=== PATIENT | male | born 1940 | race Caucasian/White ===

== ENCOUNTER 2017-09-01 14:02 | Emergency (ER) | payer MEDICARE, OTHER ==
[~2017-09-01] VITALS: Ht 165.1 cm; Wt 76.2 kg
[~2017-09-01 14:02] MED LIST: ACET500; ALBU.083IS IH; ALBU3IS INH; ALUMAG30SU PO; ATOR40TA PO; BUPR100ER; BUPR150T2 PO; CALCAVITDA PO; CEPH500 PO; CHOL10002 PO; CIPR500 PO; CLIN1TS TOP; CLON.1 PO; CLOP75 PO; CYAN1000 PO; CYAN500 PO; Carisoprodol350 MG PO; Cipro500 MG PO; Co Q-10100 MG PO; Coq-1030 MG PO; DIPH12.5EL; DIPH50 PO; DOXA4; DOXA4 PO; DULO30 PO; Daily Multiple1 EACH PO; ERYSTE250 PO; ERYT250 PO; ESOM20 PO; ESZO1 PO; ESZO2 PO; FAMO20 PO; FINA5 PO; FISH1000 PO; FLUT.05NI; Flagyl500 MG PO; Flonase 0.05% N16 GM; Fruity C250 MG PO; GAVILAX17 GM PO; GLUCHON PO; HYDACE5 PO; HYDR10; HYDR10 PO; HYDR1TAB94; HYOS.125 SL; IMIQUIMOD1 EACH; INDAPAMIDE PO; ISOMON20; LEVFLO500 PO; LORA.5 PO; LORA1 PO; LORA10 PO; LORTAB PO; LOZOL PO; Lipoic Acid1 GM PO; MAGNESIUM CITR100 MG PO; MAGNESIUM CITRATE PO; MAGOXI400 PO; MELA3; MELA3 PO; META800; METCAR750 PO; METR500 PO; MULVITMIND PO; Melatonin1 MG PO; Nitrostat0.4 MG SL; Non-Aspirin Ex500 M1 PO; Norco 5-325 Ta1 EACH PO; OXYC5 PO; PAIN RELIEVER500 MG PO; PANT40 PO; PARO10 PO; POTCHL10ER; POTCHL10ER PO; POTCIT10 PO; PRED20 PO; R LIPOIC ACID PO; RXALBOI INH; RXCLIN PO; SENN187 PO; SOMA250 MG PO; SUCR1 PO; SUCR1SU PO; Senna-Docusate1 EACH PO; TRAM50 PO; UBID10; VERA240ER PO; VERA240ERB; VICODIN 5-3001 EACH PO; VITS/SUPPS; ZINC30 MG PO; ZOLP10; ZOLP10 PO; ZOLP5 PO; [UNRECOGNIZED DRUG - OTHER] PO
[2017-09-01] MEDS ORDERED: Prednisone20 MG PO (15:10)
== END 2017-09-01 15:16 | disposition home or self-care (01) ==
LOC: ER 14:02
DX: R20.2 Paresthesia of skin (principal); T78.1XXA Other adverse food reactions, not elsewhere classified, initial encounter; Z79.899 Other long term (current) drug therapy; Z88.6 Allergy status to analgesic agent; Z88.2 Allergy status to sulfonamides; Z88.8 Allergy status to other drugs, medicaments and biological substances; Z79.2 Long term (current) use of antibiotics; Z87.442 Personal history of urinary calculi; I25.810 Atherosclerosis of coronary artery bypass graft(s) without angina pectoris; Z90.49 Acquired absence of other specified parts of digestive tract; Z87.891 Personal history of nicotine dependence
CPT/HCPCS: 96374; 96375; 99283; J1200; J2930; J3490

== ENCOUNTER 2018-10-03 00:59 | Observation (INO) | payer MEDICARE, OTHER ==
[~2018-10-03] VITALS: Ht 165.1 cm; Wt 74.2 kg
[~2018-10-03 00:59] MED LIST changes: +Omega 3 Fish O1 EACH PO; +Prednisone20 MG PO; +VITAMIN B-121000 MCG PO
[2018-10-03 01:40] LABS: PCO2 Arterial 30.9 mmHg (35-45); PO2 Arterial 85.3 mmHg (80-100); pH Blood Arterial 7.48 (7.35-7.45)
[2018-10-03 01:53] LABS: BASOPHILS ABSOLUTE AUTO 0.05 K/mm3 (0.00-0.23); BASOPHILS PERCENT AUTO 1 % (0-2); EOSINOPHILS ABSOLUTE AUTO 0.15 K/mm3 (0.00-0.68); EOSINOPHILS PERCENT AUTO 2 % (0-6); Hematocrit 38.5 % (37.0-53.0); Hemoglobin 12.6 g/dL (13.5-17.5); IMMATURE GRAN ABSOLUTE AUTO 0.02 K/mm3 (0.00-0.10); IMMATURE GRAN PERCENT AUTO 0 % (0-1); LYMPHOCYTES ABSOLUTE AUTO 2.28 K/mm3 (0.84-5.20); LYMPHOCYTES PERCENT AUTO 29 % (21-46); MONOCYTES ABSOLUTE AUTO 0.59 K/mm3 (0.16-1.47); MONOCYTES PERCENT AUTO 8 % (4-13); Mean Corpuscular HGB 29.4 pg (26.0-34.0); Mean Corpuscular HGB Conc 32.7 g/dL (31.5-36.5); Mean Corpuscular Volume 90 fL (80-100); NEUTROPHILS ABSOLUTE AUTO 4.82 K/mm3 (1.96-9.15); NEUTROPHILS PERCENT AUTO 61 % (41-73); Platelet Count 240 K/mm3 (150-400); RDW Coefficient Variation 12.2 % (11.7-14.2); RDW Standard Deviation 40.3 fL (35.1-46.3); Red Blood Cell Count 4.28 M/mm3 (4.30-5.90); White Blood Cell Count 7.91 K/mm3 (4.00-11.30)
[2018-10-03 02:17] LABS: Anion Gap 7 mmol/L (6-16); Blood Urea Nitrogen 22 mg/dL (8-24); CO2, Blood 25 mmol/L (21-32); Chloride, Blood 108 mmol/L (98-108); Glucose, Blood 110 mg/dL (70-99); Potassium, Blood 4.1 mmol/L (3.5-5.5); Sodium, Blood 140 mmol/L (136-145)
[2018-10-03 02:18] LABS: Alanine Aminotransfer (ALT/SGP 26 U/L (12-78); Albumin, Blood 3.7 g/dL (3.4-5.0); Albumin/Globulin Ratio 1.2 (0.8-1.8); Alk Phos 72 U/L (50-136); Aspartate Aminotrans (AST/SGOT 32 U/L (12-37); Bilirubin, Total 0.3 mg/dL (0.1-1.0); Bun/Creatinine Ratio 17.9 (12.0-20.0); Calcium, Blood 8.4 mg/dL (8.5-10.1); Creatinine, Blood 1.23 mg/dL (0.60-1.20); Globulin, Blood 3.2 g/dL (2.2-4.0); Glomerular Filtration Rate 57 (60-); Total Protein, Blood 6.9 g/dL (6.4-8.2); Troponin I <0.015 ng/mL (0.000-0.040)
--- NOTE | 2018-10-03 14:15 | NUR ---
PT ADMITTED TO ROOM 332 FROM ED. STATES HE HAD BEEN ASKING FOR TYLENOL FOR HEADACHE FOR SEVERAL HOURS AND HE HASN'T GOTTEN HIS BLOOD PRESSURE MEDS ALL DAY. SETTLED IN TO BED AND ORIENTED TO ROOM,
[2018-10-03] MEDS ORDERED: OLIVE LEAF EXT250 MG PO (16:33)
[2018-10-03] MEDS ORDERED: MAGNESIUM100 MG PO (16:34)
[2018-10-03] MEDS ORDERED: CLIN1TS TOP (16:35)
[2018-10-03] MEDS ORDERED: MAGNESIUM CITR100 MG PO (16:37)
[2018-10-03] MEDS ORDERED: CLARITIN10 MG PO (17:14)
[2018-10-03] MEDS ORDERED: BENADRYL25 MG PO (17:15)
--- NOTE | 2018-10-03 18:22 | NUR ---
SHIFT SUMMARY PT INDEPENDENT IN ROOM. TYLENOL AND HYDRALAZINE GIVEN. DR. SANCHEZ IN TO SEE PT WITH MEDS UPDATED IN [facility]. STATES PT MAY GO HOME TOMORROW.
[2018-10-04 06:07] LABS: Hematocrit 36.1 % (37.0-53.0); Hemoglobin 11.5 g/dL (13.5-17.5); Mean Corpuscular HGB 29.3 pg (26.0-34.0); Mean Corpuscular HGB Conc 31.9 g/dL (31.5-36.5); Mean Corpuscular Volume 92 fL (80-100); Mean Platelet Volume 10.2 fL (9.1-12.4); Platelet Count 203 K/mm3 (150-400); RDW Coefficient Variation 12.6 % (11.7-14.2); RDW Standard Deviation 42.6 fL (35.1-46.3); Red Blood Cell Count 3.92 M/mm3 (4.30-5.90); White Blood Cell Count 6.84 K/mm3 (4.00-11.30)
[2018-10-04 06:10] LABS: Alanine Aminotransfer (ALT/SGP 20 U/L (12-78); Albumin/Globulin Ratio 1.1 (0.8-1.8); Alk Phos 61 U/L (50-136); Anion Gap 5 mmol/L (6-16); Aspartate Aminotrans (AST/SGOT 18 U/L (12-37); Bilirubin, Total 0.7 mg/dL (0.1-1.0); Blood Urea Nitrogen 16 mg/dL (8-24); Bun/Creatinine Ratio 13.4 (12.0-20.0); CO2, Blood 28 mmol/L (21-32); Calcium, Blood 8.3 mg/dL (8.5-10.1); Chloride, Blood 109 mmol/L (98-108); Creatinine, Blood 1.19 mg/dL (0.60-1.20); Globulin, Blood 2.8 g/dL (2.2-4.0); Glomerular Filtration Rate >60 (60-); Glucose, Blood 102 mg/dL (70-99); Potassium, Blood 4.1 mmol/L (3.5-5.5); Sodium, Blood 142 mmol/L (136-145); Total Protein, Blood 5.8 g/dL (6.4-8.2)
--- NOTE | 2018-10-04 06:19 | NUR ---
SHIFT SUMMARY* PATIENT IS ALERT AND ORIENTED. PATIENT HAS NO COMPLAINTS OF PAIN. PATIENT REQUESTED TO HAVE CLARITIN FOR ALLERGIES, ORDER OBTAINED SEE [facility]. PATIENT SLEPT WELL THROUGHOUT THE NIGHT. PATIENT AMBULATES INDEPENDENTLY TO BATHROOM. GAIT IS STEADY. PATIENT ON ROOM AIR NO SOB NOTED. HELD PATIENTS HYDRALAZINE FOR PREVIOUS DOSE WAS GIVEN LATE ON DAYSHIFT, PER PHARMACY'S INSTRUCTIONS. PT USES CALL LIGHT APPROPRIATELY. 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 BED LOWERED AND LOCKED.
[2018-10-04] MEDS ORDERED: METR500 PO (11:26)
--- NOTE | 2018-10-04 12:45 | NUR ---
DISCHARGE INSTRUCTIONS COMPLETED AND DISCUSSED WITH PT EXPRESSING UNDERSTANDING. SCRIPTS FAXED TO [facility]. TOOK A SHOWER THIS MORNING AND HAS BEEN AMBULATING INDEPENDENTLY IN ROOM. TO [facility] VIA W/C WITH [facility] TO BE TAKING HIM HOME AND MET AT THE [facility].
== END 2018-10-04 12:25 | disposition home or self-care (01) ==
LOC: ER 00:59 → ERHOLD 01:00 → MEDS 15:23 → ENPENDDIS 10-04 09:57 → MEDS 10-04 12:25
PROVIDERS: Emergency Medicine; ADMIT Internal Medicine
DX: J69.0 Pneumonitis due to inhalation of food and vomit (principal); K21.9 Gastro-esophageal reflux disease without esophagitis; N40.0 Benign prostatic hyperplasia without lower urinary tract symptoms; I25.10 Atherosclerotic heart disease of native coronary artery without angina pectoris; F32.9 Major depressive disorder, single episode, unspecified; F41.9 Anxiety disorder, unspecified; Z87.442 Personal history of urinary calculi; Z86.73 Personal history of transient ischemic attack (TIA), and cerebral infarction without residual deficits; Z85.01 Personal history of malignant neoplasm of esophagus; Z90.49 Acquired absence of other specified parts of digestive tract; Z88.6 Allergy status to analgesic agent; Z88.8 Allergy status to other drugs, medicaments and biological substances; Z95.1 Presence of aortocoronary bypass graft
CPT/HCPCS: 36415; 36600; 71046; 80053; 82803; 83690; 84484; 85025; 85027; 92610; 93005; 93010; 94640; 96361; 96365; 96366; 96372; 96372-59; 96375; 99285-25; C9113; G0378; J1650; J2405; J7050

== ENCOUNTER 2019-08-17 09:24 | Day surgery (SDC) | payer MEDICARE, OTHER ==
[~2019-08-17] VITALS: Ht 165.1 cm; Wt 73.4 kg
[~2019-08-17 09:24] MED LIST changes: +BENADRYL25 MG PO; +CLARITIN10 MG PO; +MAGNESIUM100 MG PO; +OLIVE LEAF EXT250 MG PO; +SUCR1
[2019-08-17] MEDS ORDERED: Hydrochloroth12.5 MG (10:11)
--- NOTE | 2019-08-17 12:03 | NUR ---
08/17/19 1203 Faustina Daley ([place]inna LUNGS CLEAR IN SDU. PT DENIED SOB OR DIFFICULTY BREATHING UNTIL AFTER CONSULTATION WITH DR. CONTRERAS. PT STATES "I HAVE FLUID IN MY TRACHEA." LUNGS AUSCUTATED AGAIN; CLEAR. PT EDUCATED TO DEEP BREATH & COUGH. TISSUES PROVIDED. PT STS HE "FEELS FINE & READY TO GO." DR. CONTRERAS NOTIFIED AND OKAY'D TO DISCHARGE.
== END 2019-08-17 12:04 | disposition home or self-care (01) ==
LOC: ORSCSDS 09:24
PROVIDERS: Internal Medicine Gastroenterology
PROC: 0DJD8ZZ Inspection of Lower Intestinal Tract, Via Natural or Artificial Opening Endoscopic (ICD-10-PCS; principal; 2019-08-17 11:00)
DX: Z12.11 Encounter for screening for malignant neoplasm of colon (principal); K64.8 Other hemorrhoids; K57.30 Diverticulosis of large intestine without perforation or abscess without bleeding; Z86.010 Personal history of colon polyps; Z86.73 Personal history of transient ischemic attack (TIA), and cerebral infarction without residual deficits; I10 Essential (primary) hypertension; I25.10 Atherosclerotic heart disease of native coronary artery without angina pectoris; E78.5 Hyperlipidemia, unspecified; Z80.0 Family history of malignant neoplasm of digestive organs; F41.8 Other specified anxiety disorders; Z79.01 Long term (current) use of anticoagulants; Z79.899 Other long term (current) drug therapy; Z87.891 Personal history of nicotine dependence
CPT/HCPCS: J0330; J0461; J2405; J2704; J7120

== ENCOUNTER → 2021-06-09 | Outpatient (CLI) | payer MEDICARE, OTHER ==
[~2021-06-09] MED LIST changes: +Hydrochloroth12.5 MG; +LIDO700A20 TOP
== END | disposition home or self-care (01) ==
LOC: LAB 12:29 → LAB SHORT 12:29
DX: D48.5 Neoplasm of uncertain behavior of skin (principal)
CPT/HCPCS: 88305

== ENCOUNTER → 2021-12-07 | Outpatient (CLI) | payer MEDICARE, OTHER | END | disposition home or self-care (01) | LOC: LAB SHORT 12:14 → PLD 12:14 → LAB 12:14 | DX: D48.5 Neoplasm of uncertain behavior of skin (principal) | CPT/HCPCS: 88305 ==

== ENCOUNTER → 2022-04-20 | Outpatient (CLI) | payer MEDICARE, OTHER | LOC: LAB SHORT 13:23 | DX: R31.9 Hematuria, unspecified (principal) ==

== ENCOUNTER → 2022-12-22 | Outpatient (CLI) | payer MEDICARE, OTHER ==
[~2022-12-22] MED LIST changes: +ALBU2.5V5 INH; +AMLODIPINE-OLM1 EAC2 PO; -CLARITIN10 MG PO; +CO Q10100 MG PO; -Co Q-10100 MG PO; +Ery-Tab250 MG PO; +HYDCHL25 PO; -Hydrochloroth12.5 MG; +LORA10ER PO; +OSEL75CA PO
== END ==
LOC: LAB SHORT 14:59 → PLD 14:59
DX: D48.5 Neoplasm of uncertain behavior of skin (principal)
CPT/HCPCS: 88305

== ENCOUNTER → 2023-06-22 | Outpatient (CLI) | payer MEDICARE, OTHER | LOC: PLD 07:57 → LAB SHORT 07:57 | DX: D48.5 Neoplasm of uncertain behavior of skin (principal) | CPT/HCPCS: 88305 ==

== ENCOUNTER → 2024-02-27 | Outpatient (CLI) | payer MEDICARE, OTHER ==
[~2024-02-27] MED LIST changes: +AMLO5 PO; +AMOCLA875 PO; +AZIT250 PO; +EZET10 PO; +FURO20 PO; +Isosorbide Mono30 MG PO; +METHYL B-121000 MCG PO; +POTA10T PO; +THERA-D2000 UNIT PO; +Voltaren100 GM TOP
== END | disposition home or self-care (01) ==
LOC: LAB SHORT 14:02 → LAB 14:02
DX: L08.0 Pyoderma (principal)
CPT/HCPCS: 87070; 87205

== ENCOUNTER 2024-05-03 16:55 | Emergency (ER) | payer MEDICARE, OTHER ==
[~2024-05-03] VITALS: Ht 165.1 cm; Wt 74.8 kg
[2024-05-03 17:23] LABS: BASOPHILS ABSOLUTE AUTO 0.06 K/mm3 (0.00-0.23); BASOPHILS PERCENT AUTO 1 % (0-2); EOSINOPHILS ABSOLUTE AUTO 0.11 K/mm3 (0.00-0.68); EOSINOPHILS PERCENT AUTO 2 % (0-6); Hematocrit 37.2 % (37.0-53.0); Hemoglobin 12.4 g/dL (13.5-17.5); IMMATURE GRAN ABSOLUTE AUTO 0.03 K/mm3 (0.00-0.10); IMMATURE GRAN PERCENT AUTO 1 % (0-1); LYMPHOCYTES ABSOLUTE AUTO 2.53 K/mm3 (0.84-5.20); LYMPHOCYTES PERCENT AUTO 40 % (21-46); MONOCYTES ABSOLUTE AUTO 0.54 K/mm3 (0.16-1.47); MONOCYTES PERCENT AUTO 9 % (4-13); Mean Corpuscular HGB 29.5 pg (26.0-34.0); Mean Corpuscular HGB Conc 33.3 g/dL (31.5-36.5); Mean Corpuscular Volume 89 fL (80-100); Mean Platelet Volume 9.9 fL (9.1-12.4); NEUTROPHILS PERCENT AUTO 49 % (41-73); Platelet Count 243 K/mm3 (150-400); RDW Coefficient Variation 12.2 % (11.7-14.2); RDW Standard Deviation 39.8 fL (35.1-46.3); White Blood Cell Count 6.37 K/mm3 (4.00-11.30)
[2024-05-03 17:41] LABS: Magnesium, Blood 2.2 mg/dL (1.6-2.4)
[2024-05-03 17:42] LABS: Albumin, Blood 3.8 g/dL (3.4-5.0); Albumin/Globulin Ratio 1.1 (0.8-1.8); Bilirubin, Total 0.3 mg/dL (0.1-1.0); Bun/Creatinine Ratio 17.9 (12.0-20.0); Calcium, Blood 8.8 mg/dL (8.5-10.1); Creatinine, Blood 1.51 mg/dL (0.60-1.20); Globulin, Blood 3.5 g/dL (2.2-4.0); Potassium, Blood 4.2 mmol/L (3.5-5.5); Total Protein, Blood 7.3 g/dL (6.4-8.2)
[2024-05-03 18:11] VITALS: BP 116/75
== END 2024-05-03 18:55 | disposition home or self-care (01) ==
LOC: ER 16:55
PROVIDERS: Physician Assistant
DX: R07.89 Other chest pain (principal); R53.83 Other fatigue; N18.9 Chronic kidney disease, unspecified; Z88.8 Allergy status to other drugs, medicaments and biological substances; Z88.6 Allergy status to analgesic agent; Z88.1 Allergy status to other antibiotic agents; Z88.5 Allergy status to narcotic agent; Z79.899 Other long term (current) drug therapy; K21.9 Gastro-esophageal reflux disease without esophagitis; Z87.891 Personal history of nicotine dependence
CPT/HCPCS: 71046; 80053; 83735; 83880; 84484; 85025; 93005; 93010; 99285-25

== ENCOUNTER 2024-07-17 05:39 | Emergency (ER) | payer MEDICARE, OTHER ==
[~2024-07-17] VITALS: Ht 165.1 cm; Wt 72.6 kg
[2024-07-17 05:50] VITALS: BP 136/86
[2024-07-17 06:18] LABS: BASOPHILS ABSOLUTE AUTO 0.05 K/mm3 (0.00-0.23); BASOPHILS PERCENT AUTO 1 % (0-2); EOSINOPHILS ABSOLUTE AUTO 0.09 K/mm3 (0.00-0.68); EOSINOPHILS PERCENT AUTO 1 % (0-6); Hematocrit 38.8 % (37.0-53.0); Hemoglobin 13.2 g/dL (13.5-17.5); IMMATURE GRAN ABSOLUTE AUTO 0.05 K/mm3 (0.00-0.10); IMMATURE GRAN PERCENT AUTO 1 % (0-1); LYMPHOCYTES ABSOLUTE AUTO 2.19 K/mm3 (0.84-5.20); LYMPHOCYTES PERCENT AUTO 27 % (21-46); MONOCYTES ABSOLUTE AUTO 0.48 K/mm3 (0.16-1.47); MONOCYTES PERCENT AUTO 6 % (4-13); Mean Corpuscular HGB 29.5 pg (26.0-34.0); Mean Corpuscular Volume 87 fL (80-100); Mean Platelet Volume 9.8 fL (9.1-12.4); NEUTROPHILS ABSOLUTE AUTO 5.36 K/mm3 (1.96-9.15); NEUTROPHILS PERCENT AUTO 65 % (41-73); Platelet Count 227 K/mm3 (150-400); RDW Coefficient Variation 12.2 % (11.7-14.2); RDW Standard Deviation 38.9 fL (35.1-46.3); Red Blood Cell Count 4.47 M/mm3 (4.30-5.90); White Blood Cell Count 8.22 K/mm3 (4.00-11.30)
[2024-07-17 06:40] LABS: Albumin, Blood 4.1 g/dL (3.4-5.0); Albumin/Globulin Ratio 1.1 (0.8-1.8); Bilirubin, Total 0.6 mg/dL (0.1-1.0); Calcium, Blood 9.8 mg/dL (8.5-10.1); Creatinine, Blood 1.68 mg/dL (0.60-1.20); Globulin, Blood 3.6 g/dL (2.2-4.0); Potassium, Blood 3.9 mmol/L (3.5-5.5); Total Protein, Blood 7.7 g/dL (6.4-8.2)
[2024-07-17] MEDS ORDERED: NS 500 ML IV SCH (07:45)
[2024-07-17] MEDS ORDERED: Dexamethasone Sod Phos 10 MG/ML 1ML VIAL IV ONE (07:45)
[2024-07-17] MEDS ORDERED: Acetaminophen 500 MG Tab PO ONE (07:45)
[2024-07-17] MEDS ORDERED: Ipratropium/Albuterol SulF 2.5-0.5MG/3 ML Amp INH ONE (07:45)
[2024-07-17] MEDS ORDERED: Promethazine HCl 25 MG Tab PO ONE (07:45)
[2024-07-17] MEDS ORDERED: Lidocaine HCl 4% 5 ML SDA INH ONE (09:15)
[2024-07-17] MEDS ORDERED: Albuterol 2.5 MG/3 ML VIAL INH SCH (09:15)
[2024-07-17] MEDS ORDERED: ONDA4ODT MM (09:45)
== END 2024-07-17 10:49 | disposition home or self-care (01) ==
LOC: ER 05:39
PROVIDERS: Emergency Medicine
DX: T17.918A Gastric contents in respiratory tract, part unspecified causing other injury, initial encounter (principal); J98.01 Acute bronchospasm; R07.89 Other chest pain; E86.0 Dehydration; I25.10 Atherosclerotic heart disease of native coronary artery without angina pectoris; Z85.01 Personal history of malignant neoplasm of esophagus; Z87.891 Personal history of nicotine dependence; Z86.73 Personal history of transient ischemic attack (TIA), and cerebral infarction without residual deficits; Z88.6 Allergy status to analgesic agent; Z88.8 Allergy status to other drugs, medicaments and biological substances; Z88.5 Allergy status to narcotic agent; Z79.01 Long term (current) use of anticoagulants; Z79.899 Other long term (current) drug therapy; W44.8XXA Other foreign body entering into or through a natural orifice, initial encounter
CPT/HCPCS: 71046; 80053; 83880; 84145; 84484; 85025; 93005; 93010; 94644; 94664; 96374; 99285-25; A9270; J1100; J2003; J7030

== ENCOUNTER 2024-09-11 09:25 | Day surgery (SDC) | payer MEDICARE, OTHER ==
[~2024-09-11] VITALS: Ht 165.1 cm; Wt 77.5 kg
[~2024-09-11 09:25] MED LIST changes: +Balanced Salt Epinephrine Irrigation Solution 500 mL IR SCH; +Lidocaine HCl/Pf 1% 5 ML VIAL XX SCH; +Moxifloxacin HCL 0.5 MG/0.1 ML 0.4MLSYR RIGHTEYE SCH; +ONDA4ODT MM; +PHENYLEPHRINE\\TROPICAMIDE\\TETRACAINE OPHTHALMIC DILATING SOLN RIGHTEYE PRN; +Povidone-Iodine 450 DROP/30 ML Solution ONE; +Povidone-Iodine 450 DROP/30 ML Solution RIGHTEYE SCH; +Tetracaine HCl/Pf 0.5% Opth Soln 4 ml ONE
[2024-09-11] MEDS ORDERED: Diazepam 2 MG Tab ONE (09:55)
[2024-09-11] MEDS ORDERED: Ondansetron HCl 2 MG / ML 2ML Vial ONE (10:04)
[2024-09-11] MEDS ORDERED: ACET325 PO (10:16)
--- NOTE | 2024-09-11 10:37 | NUR ---
09/11/24 CA TRAN PATIENT RESTING ON GURNEY, RAILS UP, CALL LIGHT IN REACH.
[2024-09-11 11:12] VITALS: BP 131/86
== END 2024-09-11 11:30 | disposition home or self-care (01) ==
LOC: ORSCSDS 09:25
PROVIDERS: Student in an Organized Health Care Education/Training Program
PROC: 08RJ3JZ Replacement of Right Lens with Synthetic Substitute, Percutaneous Approach (ICD-10-PCS; principal; 2024-09-11 11:00)
DX: H25.813 Combined forms of age-related cataract, bilateral (principal); H35.89 Other specified retinal disorders; H04.123 Dry eye syndrome of bilateral lacrimal glands; F41.9 Anxiety disorder, unspecified; F32.A Depression, unspecified; I25.10 Atherosclerotic heart disease of native coronary artery without angina pectoris; E78.5 Hyperlipidemia, unspecified; K21.9 Gastro-esophageal reflux disease without esophagitis; I10 Essential (primary) hypertension; G47.33 Obstructive sleep apnea (adult) (pediatric); Z87.891 Personal history of nicotine dependence; Z79.899 Other long term (current) drug therapy
CPT/HCPCS: A9270; J2405; V2632

== ENCOUNTER 2024-09-18 06:06 | Day surgery (SDC) | payer MEDICARE, OTHER ==
[~2024-09-18] VITALS: Ht 165.1 cm; Wt 77.7 kg
[~2024-09-18 06:06] MED LIST changes: +ACET325 PO; +Moxifloxacin HCL 0.5 MG/0.1 ML 0.4MLSYR LEFTEYE SCH; -Moxifloxacin HCL 0.5 MG/0.1 ML 0.4MLSYR RIGHTEYE SCH; +PHENYLEPHRINE\\TROPICAMIDE\\TETRACAINE OPHTHALMIC DILATING SOLN LEFTEYE PRN; -PHENYLEPHRINE\\TROPICAMIDE\\TETRACAINE OPHTHALMIC DILATING SOLN RIGHTEYE PRN; +Povidone-Iodine 450 DROP/30 ML Solution LEFTEYE SCH; -Povidone-Iodine 450 DROP/30 ML Solution RIGHTEYE SCH
[2024-09-18] MEDS ORDERED: Diazepam 2 MG Tab ONE (06:10)
[2024-09-18] MEDS ORDERED: Tetracaine HCl 0.5% Opth Soln 15 ml ONE (06:17)
[2024-09-18] MEDS ORDERED: Lidocaine HCl/Pf 1% 5 ML VIAL ONE (06:41)
--- NOTE | 2024-09-18 06:44 | NUR ---
09/18/24 0644 Daphne Walden CALL LIGHT WITHIN REACH. TETRACAINE IN LEFT EYE AT 0637 AND PLEDGETT IN AT 0638. PT STATES HE IS FEELING RELAX WITH 4MG OF VALIUM
[2024-09-18] MEDS ORDERED: Nitroglycerin1 EAC3 TOP (07:24)
[2024-09-18] MEDS ORDERED: Tetracaine HCl 0.5% Opth Soln 15 ml LEFTEYE ONE (07:29)
[2024-09-18] MEDS ORDERED: Erythromycin 0.5% Opth Oint 1 gm ONE (07:50)
--- NOTE | 2024-09-18 08:00 | NUR ---
09/18/24 0800 Alma Avilez CALLED- SAID IT WOULD BE APPROXIMATELY 30 MINUTES
[2024-09-18 08:03] VITALS: BP 135/90
== END 2024-09-18 08:23 | disposition home or self-care (01) ==
LOC: ORSCSDS 06:06
PROVIDERS: Student in an Organized Health Care Education/Training Program
PROC: 08RK3JZ Replacement of Left Lens with Synthetic Substitute, Percutaneous Approach (ICD-10-PCS; principal; 2024-09-18 07:30)
DX: H25.812 Combined forms of age-related cataract, left eye (principal); Z96.1 Presence of intraocular lens; H04.123 Dry eye syndrome of bilateral lacrimal glands; H35.89 Other specified retinal disorders; F41.9 Anxiety disorder, unspecified; F32.A Depression, unspecified; K21.9 Gastro-esophageal reflux disease without esophagitis; E78.5 Hyperlipidemia, unspecified; G47.33 Obstructive sleep apnea (adult) (pediatric); I25.10 Atherosclerotic heart disease of native coronary artery without angina pectoris; I10 Essential (primary) hypertension; Z87.891 Personal history of nicotine dependence; Z79.02 Long term (current) use of antithrombotics/antiplatelets; Z79.899 Other long term (current) drug therapy
CPT/HCPCS: A9270; J2003; V2632